=== PATIENT | male | born 1950 | race Caucasian/White ===

== ENCOUNTER → 2016-12-06 | Outpatient (CLI) | payer MEDICARE, OTHER | END | disposition home or self-care (01) | LOC: GMAM 10:35 | PROVIDERS: ATTEND Family Medicine | DX: R30.0 Dysuria (principal) ==

== ENCOUNTER → 2017-01-02 | Outpatient (CLI) | payer MEDICARE, OTHER | END | disposition home or self-care (01) | LOC: GMAM 16:43 | PROVIDERS: ATTEND Family Medicine | DX: R00.2 Palpitations (principal) ==

== ENCOUNTER → 2018-01-07 | Outpatient (CLI) | payer MEDICARE, OTHER ==
--- NOTE | 2018-01-08 01:33 | US ---
Ultrasound gallbladder on 01/07/2018 CLINICAL INDICATION: Right upper quadrant pain COMPARISON: CT from 01/11/2016 FINDINGS: Multiple sonographic images are obtained throughout the right upper quadrant, both transverse and sagittal images are obtained. Limited visualized pancreas is unremarkable. Multiple small hepatic cysts are again noted. No worrisome focal liver lesion is noted. There are no gallstones, gallbladder wall thickening or pericholecystic fluid. The common duct measures 3 mm which is within normal limits mitigating against obstruction of the biliary tree. Right kidney shows no hydronephrosis. No free fluid is noted in the right upper quadrant. IMPRESSION: Essentially unremarkable exam. Electronically signed by: Wil Ca 01/08/2018 1:32 AM PATTERN MOLDER
== END ==
LOC: US 08:00
PROVIDERS: ATTEND Family Medicine
DX: R10.11 Right upper quadrant pain (principal); D12.6 Benign neoplasm of colon, unspecified; I10 Essential (primary) hypertension; E78.2 Mixed hyperlipidemia

== ENCOUNTER 2018-01-29 05:52 | Day surgery (SDC) | payer MEDICARE, OTHER ==
[2018-01-29] MEDS ORDERED: LACTATED RINGERS 1,000 ML ONE (06:48)
[2018-01-29] MEDS ORDERED: LIDOCAINE 1% 10 ML VIAL INJ ONE (09:00)
[2018-01-29] MEDS ORDERED: PROPOFOL 200 MG/20 ML VIAL IV ONE (09:00)
--- NOTE | 2018-01-29 09:25 | OP ---
DATE OF PROCEDURE: 01/29/18 INDICATION: Previous history of tubular polyps. PREOPERATIVE DIAGNOSIS: 1. History of colonic polyps. POSTOPERATIVE DIAGNOSIS: 1. Colonoscopy completed to the cecum. Ileocecal valve visualized and photographed. 2. 4-mm polyp found in the proximal descending colon, removed with straight forceps biopsy with good hemostasis. 3. Polyp in the proximal rectum, 4-mm, removed with straight forceps biopsy with good hemostasis. 4. Polyp in the mid-rectum, approximately 6-mm in size, with a very firm texture, removed partially with straight forceps biopsy, partially with snare and the area was tattooed for future review. PROCEDURE: 1. Colonoscopy with polypectomy. SURGEON: Axel Barros MD ANESTHESIA: Per Mohsen Santiago CRNA. COMPLICATIONS: None apparent. TECHNIQUE: The patient was brought to the GI lab and laid in the left lateral decubitus position. Digital rectal exam was performed. The prostate was found to be normal in size and texture. No masses were palpated in the rectum. The colonoscope was advanced into the rectum and through to the cecum. The cecum was well visualized. The prep was good. There were no polyps noted in the cecum. The ileocecal valve was visualized, but not cannulated. The scope was then withdrawn gradually through the ascending colon, back into the transverse colon, through the transverse colon into the descending colon. In the proximal descending colon, a 4-mm polyp was noted and removed with straight forceps biopsy. Good hemostasis was achieved. The scope was withdrawn down through the sigmoid colon with no abnormalities noted and into the rectum. In the very proximal portion of the rectum, a 4-mm polyp was noted. This was removed with the straight forceps biopsy. Good hemostasis was achieved. As we withdrew further into the rectum, another larger polyp, 6 to 8-mm in size was found. This had a very hard texture to it. Straight forceps biopsy was used to biopsy a piece. The snare was used which removed a portion of it as well but due to the firmness of this polyp, we were unable to get the whole polyp with the forceps biopsy. We went back in with the straight forceps biopsy and took several more biopsies. We did feel like we adequately destroyed this polyp, but we did tattoo the area for future review in case the pathology comes back as something significant. The scope was then gradually withdrawn. Retroflexion was not attempted as significant air had already been used on this patient with the several polyps and we had a retroflexion done within the past few years. Good visualization was achieved as we withdrew. The patient tolerated the procedure well. There were no complications. The patient will be discharged when he is cleared from an anesthesia standpoint. #[id number] [facility]
[2018-01-29 09:47] VITALS: BP 115/74; TEMP 98.2; O2SAT 99
== END 2018-01-29 09:45 | disposition home or self-care, planned readmission (81) ==
LOC: AMB 05:52
PROVIDERS: ATTEND Family Medicine
DX: Z12.11 Encounter for screening for malignant neoplasm of colon (principal); D12.7 Benign neoplasm of rectosigmoid junction; D12.4 Benign neoplasm of descending colon; I10 Essential (primary) hypertension; K21.9 Gastro-esophageal reflux disease without esophagitis; M54.9 Dorsalgia, unspecified; N28.9 Disorder of kidney and ureter, unspecified; N40.0 Benign prostatic hyperplasia without lower urinary tract symptoms; E78.5 Hyperlipidemia, unspecified; I65.29 Occlusion and stenosis of unspecified carotid artery; I07.1 Rheumatic tricuspid insufficiency; I49.9 Cardiac arrhythmia, unspecified; Z86.010 Personal history of colon polyps; Z79.82 Long term (current) use of aspirin; Z79.899 Other long term (current) drug therapy
CPT/HCPCS: 00812; 45380; 45381; 45385; 88305; J3490; J7120

== ENCOUNTER → 2018-09-09 | Outpatient (CLI) | payer MEDICARE, OTHER ==
--- NOTE | 2018-09-10 09:10 | MRI ---
EXAM DESCRIPTION: Lumbar Spine w/o Contrast : Magnetic Resonance Imaging. CLINICAL HISTORY: RADICULOPATHY COMPARISON: None. TECHNIQUE: Multiplanar, multiple standard sequences, non contrast MRI, lumbar spine. FINDINGS: L5-S1: Minimal disc desiccation. Posterior midline hyperintense T2 annular fissure. Tiny bulge. Mild canal narrowing. Minimal bilateral flavum ligament hypertrophy. Mild bilateral foraminal narrowing. L4-5: Disc desiccation and moderate to severe disc space loss predominantly midline and right of midline. Modic type II endplate reactive changes to the right with disc spur complex causing mild narrowing of the right foramen. Left foramen is patent. Flavum ligament hypertrophy and minimal facet arthrosis bilaterally. Mild canal narrowing. L3-4: Minimal disc desiccation but no bulging. Trace anterolisthesis. Posterior flavum ligament hypertrophy and bilateral facet arthrosis with moderate canal narrowing. Bilateral foramina patent. L2-3: Minimal disc desiccation. Trace retrolisthesis. Minimal flavum ligament hypertrophy. Mild to moderate canal narrowing. Bilateral foramina are patent. L1-2: Minimal desiccation of the disc. Anterior disc space mild narrowing with no bulging. Trace retrolisthesis. No posterior bulge. Bilateral flavum ligament hypertrophy mild with canal patent. Bilateral foramina are patent. T12-L1: Normal signal in the disc with disc space preserved. Posterior elements unremarkable. Canal and foramina are patent. Conus terminates at this level. Otherwise normal anatomic alignment. Paravertebral soft tissues demonstrate minimal paraspinal atrophy.. Heterogeneous marrow signal in the sacrum and pelvis; remaining vertebral bodies and the posterior elements with normal marrow signal. Vertebral bodies are not compressed at any level. IMPRESSION: 1. Moderate spondylosis in the midline into the right of midline at L4-5 with disc spur complex narrowing the right foramen. Mild canal narrowing. No nerve root compromise. 2. Posterior midline annular fissure L5-S1 but no significant canal or foraminal narrowing. 3. Moderate canal narrowing at L3-4 secondary to posterior elements hypertrophy and arthrosis. 4. Varying degrees of facet hypertrophy/arthrosis and flavum ligament hypertrophy in the remaining lumbar disc spaces. Electronically signed by: Alfonzo Yi MD 09/10/2018 9:08 AM TUBE DEPATCHER
== END ==
LOC: MRI 14:10
PROVIDERS: ATTEND Physician Assistant Medical
DX: M54.16 Radiculopathy, lumbar region (principal); M51.36 Other intervertebral disc degeneration, lumbar region; M47.896 Other spondylosis, lumbar region

== ENCOUNTER → 2019-02-01 | Outpatient (CLI) | payer MEDICARE, OTHER ==
--- NOTE | 2019-02-02 09:35 | US ---
EXAM DESCRIPTION: Gall Bladder CLINICAL HISTORY: RUQ ABD PAIN COMPARISON: CT abdomen without and with contrast January 11, 2016, previous sonogram of the abdomen January 02, 2016 TECHNIQUE: Right upper quadrant ultrasound FINDINGS: Pancreas: Visualized portions of the pancreas are unremarkable. Bowel gas obscures some areas. Aorta/inferior vena cava: No aortic aneurysm. Normal inferior vena cava. Liver: The liver is homogeneous in texture with normal echogenicity of the hepatic parenchyma. Multiple small liver cysts measuring 6 mm, 1.1 cm and 1.3 cm and the right and left lobes. Sonographically solid-appearing right lobe liver lesion 1.3 cm is consistent with a hemangioma with somewhat atypical appearance. Patient had a CT of the abdomen January 11, 2016 which showed multiple liver cysts. An additional lesion in the peripheral inferior right lobe of the liver measured 1.9 cm with subtle peripheral enhancement. The appearance here is also suggestive of a hemangioma. Patient also had a sonogram of the abdomen January 02, 2016 which showed multiple liver cysts and a subtle echogenic lesion in the right lobe measurement on the previous sonogram was 2.6 cm. Continued follow-up recommended with sono of the liver and 6-12 months. No intrahepatic bile duct dilatation. No liver surface irregularity. Normal appearance of the portal vein and hepatic veins. Liver length of 17.3 cm is within normal limits. Gallbladder: Gallbladder appears normal with no intraluminal stones or wall thickening. Common bile duct: Normal caliber measuring 3.6 mm. Right kidney: Renal length is 10.2 cm. Normal cortical echogenicity. There is mild diffuse cortical thinning. No hydronephrosis is seen. No renal mass or shadowing calculus. IMPRESSION: Multiple benign appearing liver lesions. See above. Normal sonographic appearance of the gallbladder and common bile duct. Electronically signed by: Marquise Mackay MD 02/02/2019 9:32 AM CDT
== END ==
LOC: US 17:07
PROVIDERS: ATTEND Family Medicine
DX: R10.11 Right upper quadrant pain (principal); K76.89 Other specified diseases of liver

== ENCOUNTER → 2019-04-21 | Outpatient (CLI) | payer MEDICARE, OTHER | LOC: LAB.O 10:00 | PROVIDERS: ATTEND Internal Medicine Gastroenterology | DX: R63.4 Abnormal weight loss (principal); R10.10 Upper abdominal pain, unspecified ==

== ENCOUNTER 2019-05-26 05:38 | Day surgery (SDC) | payer MEDICARE, OTHER ==
[2019-05-26] MEDS ORDERED: LIDOCAINE 1% 10 ML VIAL INJ ONE (07:00)
[2019-05-26] MEDS ORDERED: PROPOFOL 200 MG/20 ML VIAL IV ONE (07:00)
[2019-05-26] MEDS ORDERED: LACTATED RINGERS 1,000 ML ONE (07:19)
[2019-05-26 13:08] VITALS: BP 139/69; TEMP 97.4; O2SAT 97
--- NOTE | 2019-05-26 13:13 | OP ---
DATE OF PROCEDURE: 05/26/19 PREOPERATIVE DIAGNOSIS: 1. Anemia. 2. Weight loss. POSTOPERATIVE DIAGNOSIS: 1. Hiatal hernia. 2. Colonic polyps. 3. Diverticulosis. 4. Internal hemorrhoids. PROCEDURE: 1. Esophagogastroduodenoscopy. 2. Colonoscopy. SURGEON: Watson Kelley MD COMPLICATIONS: No immediate complications. SEDATION: The patient was sedated via IV propofol by the Anesthesia Department. CONSENT: Prior to the procedure, risks, benefits and alternatives to the therapy were discussed with the patient. The risks included bleeding, infection, perforation and . The patient agreed to the procedure and signed a consent. PREPROCEDURE ANESTHESIA ASSESSMENT: Mallampati class type 2, ASA grade assessment type 2. Throughout the procedure, the patient's vital signs were closely monitored. EGD: The patient was placed in the left lateral decubitus position. Bite block was placed in the mouth between the teeth. The Olympus endoscope was introduced in the mouth, through the oropharynx, esophagus, stomach and the second portion of the duodenum. The scope was retracted and the mucosa visualized. The entirety of the exam was performed under direct visualization. Retroflexion was performed in the stomach. The patient tolerated the procedure well. FINDINGS: 1. The esophagus revealed a medium sized hiatal hernia. The diaphragmatic pinch was found at 44 cm from the incisors and the gastric folds at 41 cm. 2. Schatzki's ring, nonobstructive, was found at 39 cm from the incisors. 3. The remainder of the esophagus was unremarkable. 4. The stomach was unremarkable and overall normal in appearance. Biopsies were obtained with cold forceps from the gastric antrum to rule out H. pylori infection. 5. The duodenum were normal. Biopsies were obtained from the second portion and the bulb with cold forceps to rule out celiac disease. COLONOSCOPY: The patient was turned around and a rectal examination was performed. The rectal examination was within normal limits. The Olympus colonoscope was passed in the anus, rectum, traversing the colon to the level of the cecum as identified by the appendiceal orifice. The scope was retracted and the mucosa was visualized. The entirety of the exam was performed under direct visualization. Retroflexion was performed in the rectum. Preparation quality was excellent. The withdrawal time was greater than 6 minutes. The patient tolerated the procedure well. FINDINGS: 1. Diverticulosis found predominantly in the sigmoid colon. 2. Two colonic polyps, sessile, and measuring 4 to 6 mm were found in the cecum. A cold snare was utilized for removal and complete retrieval. No bleeding during or at the end of the procedure. 3. The terminal ileum was entirely normal. 4. Non-bleeding large internal hemorrhoids were found in retroflexion in the rectum. RECOMMENDATION: 1. Return the patient home. 2. Resume previous diet favoring high-fiber foods. 3. Followup pathology results. 4. Repeat colonoscopy in 5 years. 5. No evident cause to explain the patient's significant weight loss. Additional workup and clinical correlation is granted. Obtain CT abdomen and pelvis with and without IV contrast. 6. Findings were discussed with the patient and family members. 7. Return to my office in the next [address] #[id number] [facility]
== END 2019-05-26 13:05 | disposition home or self-care (01) ==
LOC: AMB 05:38
PROVIDERS: ATTEND Internal Medicine Gastroenterology
DX: D64.9 Anemia, unspecified (principal); D12.0 Benign neoplasm of cecum; K57.30 Diverticulosis of large intestine without perforation or abscess without bleeding; K64.8 Other hemorrhoids; K29.50 Unspecified chronic gastritis without bleeding; K44.9 Diaphragmatic hernia without obstruction or gangrene; K22.2 Esophageal obstruction; R63.4 Abnormal weight loss; K62.5 Hemorrhage of anus and rectum
CPT/HCPCS: 00813; 43239; 45385; 88305; 88342; J3490; J7120

== ENCOUNTER → 2019-06-09 | Outpatient (CLI) | payer MEDICARE, OTHER | LOC: LAB.O 09:06 | PROVIDERS: ATTEND Internal Medicine Gastroenterology | DX: R10.10 Upper abdominal pain, unspecified (principal); R63.4 Abnormal weight loss ==

== ENCOUNTER → 2019-06-11 | Outpatient (CLI) | payer MEDICARE, OTHER ==
--- NOTE | 2019-06-11 11:09 | CT ---
EXAM DESCRIPTION: Abdomen/Pelvis w/Contrast: Computed Tomography. CLINICAL HISTORY: 69 years Male UPPER ABDOMINAL PAIN, ABNORMAL WEIGHT LOSS. Right flank pain x5 months. COMPARISON: CT scan of abdomen and pelvis with and without contrast 01/11/2016. Ultrasound gallbladder 02/01/2019. TECHNIQUE: Spiral-axial scans at 5 x 5 mm intervals through the abdomen and pelvis, after 75 mL Optiray 320 nonionic IV contrast without oral contrast. Coronal and sagittal 2.0 mm reconstructions. Delayed scans, liver through the pelvis. Axial-spiral 5mm. No adverse reactions. Total Exam DLP: 1873.47 mGy-cm. This exam was performed according to our departmental dose-optimization program which includes automated exposure control, adjustment of the mA and/or kV according to patient size and/or use of iterative reconstruction technique; to reduce radiation dose to as low as reasonably achievable (ALARA). FINDINGS: Lung bases and pleura: Negative. Liver, Stomach, Spleen, Adrenal Glands: Multiple cystic structures less than 2 mm in diameter in the every hepatic segment. Long axis of the right hepatic lobe 17.5 cm. Small hiatal hernia. Spleen and adrenal glands negative. Pancreas, Gallbladder, Ducts: Gallbladder visualized. Ducts and pancreas negative. Kidneys and Ureters: Unremarkable. Mesentery: Negative. Aorta: Minimal atherosclerotic changes including the bilateral proximal common iliac arteries. Small Bowel: Intermittent fluid in small bowel segments with mild distention. Radiodense material within small bowel in the ileum and right lower quadrant not seen on the prior study. No surrounding inflammatory changes. Terminal Ileum/Cecum: Normal caliber of the structures in the appendix with no inflammatory changes. Colon: Fecal material proximal half of the colon. Decompression in the distal half with minimal diverticula. Minimal mucosal thickening in the descending colon but haustral markings are present. Edema in the napoles of the proximal sigmoid colon. No inflammatory changes in the surrounding fat.. Pelvic Organs: No free fluid. Prostate gland minimally enlarged, abutting the base of the urinary bladder. Bladder wall slightly thickened. 5.2 x 4.1 cm. Low density of the prosthetic segment of the urethra. Spine and Bony Pelvis: Narrowing of L4-L5 disc space with spondylosis and degenerative vacuum phenomenon. Minimal arthrosis bilateral hip joints. Possible bone mineral donor site or biopsy site left iliac wing abutting the SI joint. Stable since the prior study. Abdominal Wall/Back Soft Tissues: Negative. IMPRESSION: 1. Multiple hepatic cysts, stable since the prior study. Mild enlargement of the liver. Small hiatal hernia. No ascites. 2. Intermittent distention of the small bowel with fluid and gas. No obstruction but this could indicate a viral process. Radiodense material in the distal small bowel most likely related to food or medication. Minimal inflammatory changes in the proximal sigmoid colon with wall thickening and edema. Adjacent fat does not show inflammation. Scattered diverticula in the colon but no definite diverticulitis. 3. Enlarged prostate gland abutting the base of the urinary bladder with minimal distention of the prostatic urethra. Stable since the prior study. Electronically signed by: Alfonzo Yi MD 06/11/2019 11:07 AM CDT
== END ==
LOC: CT 08:00
PROVIDERS: ATTEND Internal Medicine Gastroenterology
DX: K76.89 Other specified diseases of liver (principal); K57.30 Diverticulosis of large intestine without perforation or abscess without bleeding; K44.9 Diaphragmatic hernia without obstruction or gangrene; N40.0 Benign prostatic hyperplasia without lower urinary tract symptoms

== ENCOUNTER → 2019-11-29 | Outpatient (CLI) | payer MEDICARE, OTHER ==
--- NOTE | 2019-11-30 09:02 | MRI ---
EXAM DESCRIPTION: Lumbar Spine w/o Contrast : Magnetic Resonance Imaging. CLINICAL HISTORY: SPINAL STENOSIS COMPARISON: MRI lumbar spine without contrast September 2018. Lumbar spine radiographs November 2019. TECHNIQUE: Multiplanar, multiple standard sequences, non contrast MRI, lumbar spine. FINDINGS: L5-S1: The disc is well visualized on axial T2 series 501, image 3. Disc desiccation and minimal disc space loss. Posterior midline bulge with hyperintense T2 annular fissure. Degenerative hypertrophy of the posterior flavum ligaments and facet joints (posterior elements) mild to moderate bilateral foraminal narrowing. AP canal diameter 12 mm. Stable since the prior study. L4-L5: Disc desiccation and moderate to severe disc space loss to the right of midline with moderate endplate reactive changes. Disc spur complexes encroaching on the right foramen which is mildly moderately narrowed. No edema within the disc. Minimal posterior disc osteophyte bulge. Degenerative hypertrophy of the posterior elements impressing on the lateral thecal sac. AP canal diameter 13 mm. No change from the prior study. L3-L4: disc desiccation minimal disc space loss. Grade 1 anterolisthesis 2 mm. Moderate degenerative hypertrophy posterior elements. AP canal diameter 9 mm. Mild narrowing left foramen and right foramen is patent. L2-L3: Disc desiccation with disc space preserved and no posterior bulging. Minimal degenerative hypertrophy of the posterior elements. AP canal diameter 14 mm. Bilateral foramina are patent. L1-L2: Disc desiccation with anterior bulging and minimally anterior endplate ridging and disc space loss. No posterior bulge. Minimal degenerative hypertrophy of the posterior elements. Canal and bilateral foramina are patent. No change from the prior study. T12-L1: Normal signal in the disc with disc space preserved. No posterior bulging. Minimal hypertrophy of the posterior elements. Canal and bilateral foramina are patent. Stable since the prior study. No significant scoliosis. Paravertebral soft tissues unremarkable.. Distal cord normal signal and caliber. Heterogeneous marrow signal in the remaining vertebral bodies and the posterior elements. Vertebral bodies are not compressed at any level.. Perineural cyst on the right at S2 is a normal variant. IMPRESSION: 1. Multiple levels of dislocated discs and hypertrophic posterior flavum ligaments and degenerated facet joints. 2. Moderate spondylosis at L4-L5 more severe on the right. No nerve impingement. No canal or foraminal stenosis. No change from the prior study. 3. Grade 1 anterolisthesis L3-L4 with multifactorial mild central canal stenosis. Foramina are patent. Stable from the prior study. These findings were discussed by phone call directly from Dr. Yi to Dr. Barros at approximately 900 hours on November 30, 2019. Electronically signed by: Alfonzo Yi MD 11/30/2019 9:01 AM [facility]
== END ==
LOC: MRI 09:49
PROVIDERS: ATTEND Family Medicine
DX: M48.062 Spinal stenosis, lumbar region with neurogenic claudication (principal); M51.36 Other intervertebral disc degeneration, lumbar region; M51.37 Other intervertebral disc degeneration, lumbosacral region; M47.896 Other spondylosis, lumbar region; M43.16 Spondylolisthesis, lumbar region; M24.28 Disorder of ligament, vertebrae

== ENCOUNTER → 2020-03-30 | Outpatient (CLI) | payer MEDICARE, OTHER ==
--- NOTE | 2020-03-31 09:36 | RAD ---
EXAM DESCRIPTION: Lumbar Spine 3 Views: CR/DR/x-ray. CLINICAL HISTORY: 69 years Male SPINAL STENOSIS M48.062 COMPARISON: MRI scan lumbar spine November 29. Radiographs lumbar spine November 24. TECHNIQUE: 2 Views lumbar spine. AP Lateral lumbosacral lateral spot L5-S1. FINDINGS: Lumbar type vertebra: 5. Technically difficult study due to patient large body habitus and bowel gas. Transitional vertebrae: None. Posterior spinous processes with external fixation and fusion L3-L4 and L4-L5. Disc spaces: Minimal narrowing L5-S1. Facet joints: Bilateral arthrosis L4-L5 and L5-S1. Compression deformities: None. Bone Density: Normal. Alignment: Dextroscoliosis. Grade 1 anterolisthesis L3-L4. Abdomen: Fecal matter proximal colon. IMPRESSION: Posterior spinous process fusion L3-L4 and L4-L5. Minimal narrowing of the L5-S1 disc space. Mild levoscoliosis. Arthrosis L4-L5 and L5-S1. No significant spondylolisthesis. No compression type vertebral body fractures. Electronically signed by: Alfonzo Yi MD 03/31/2020 9:34 AM CDT
== END ==
LOC: RAD 16:32
PROVIDERS: ATTEND Family Medicine Sports Medicine
DX: M48.062 Spinal stenosis, lumbar region with neurogenic claudication (principal); M41.86 Other forms of scoliosis, lumbar region; M47.896 Other spondylosis, lumbar region; M47.897 Other spondylosis, lumbosacral region; M51.37 Other intervertebral disc degeneration, lumbosacral region; Z98.1 Arthrodesis status

== ENCOUNTER → 2020-04-05 | Outpatient (CLI) | payer MEDICARE, OTHER ==
--- NOTE | 2020-04-05 13:10 | MRI ---
Study: MRI of the Right Hip. Indication: STENOSIS Technique: Multiplanar, multi sequence MRI of the right hip was obtained without intravenous contrast. Comparison: None. Findings: Patchy diminished T1 marrow signal throughout the lumbar spine and pelvis with mild elevated STIR signal, likely red marrow reconversion but ultimately nonspecific. Pronounced lower lumbar disc disease. No acute fracture or osteonecrosis. Tendinosis bilateral hamstring tendon origins. Tendinosis bilateral gluteus minimus/medius tendon insertions with mild bilateral greater trochanteric bursal edema. Grade 3 chondral thinning throughout the majority of the right hip joint with subtle areas of grade 4 chondrosis anterior superiorly and posteriorly. Tiny osteophytes present. Tiny joint effusion. Degenerative tearing anterior superior right hip labrum. Impression: Moderate right hip osteoarthritis without acute fracture or osteonecrosis. Patchy diminished T1 marrow signal with slightly elevated STIR signal, likely red marrow reconversion but nonspecific. Correlation with CBC recommended. Bone marrow biopsy may prove useful. Additional findings as above. Electronically signed by: Sg Hutchins MD 04/05/2020 1:09 PM CDT
== END ==
LOC: MRI 08:00
PROVIDERS: ATTEND Family Medicine Sports Medicine
DX: M16.11 Unilateral primary osteoarthritis, right hip (principal); M48.062 Spinal stenosis, lumbar region with neurogenic claudication; M51.84 Other intervertebral disc disorders, thoracic region

== ENCOUNTER → 2020-07-26 | Outpatient (CLI) | payer MEDICARE, OTHER | LOC: GMAM 14:06 | PROVIDERS: ATTEND Family Medicine | DX: E53.8 Deficiency of other specified B group vitamins (principal); E55.9 Vitamin D deficiency, unspecified; Z12.5 Encounter for screening for malignant neoplasm of prostate; I10 Essential (primary) hypertension; E78.2 Mixed hyperlipidemia | CPT/HCPCS: 82306; 82607; G0103 ==

== ENCOUNTER 2020-07-28 05:40 | Day surgery (SDC) | payer MEDICARE, OTHER ==
[2020-07-28] MEDS ORDERED: LIDOCAINE 1% 10 ML VIAL INJ ONE ×4 (07:00→13:43)
[2020-07-28] MEDS ORDERED: PROPOFOL 200 MG/20 ML VIAL IV ONE (07:00)
[2020-07-28] MEDS ORDERED: methylPREDNISolone ACETATE 80 MG/ML VIAL ONE (08:36)
[2020-07-28] MEDS ORDERED: BUPIVACAINE 0.5% 30 ML VIAL INJ ONE ×2 (08:36→13:44)
[2020-07-28] MEDS ORDERED: SODIUM CHLORIDE 0.9% 1000ML 1,000 ML ONE (12:42)
[2020-07-28] MEDS ORDERED: methylPREDNISolone ACETATE 80 MG/ML VIAL IM ONE (13:44)
--- NOTE | 2020-07-31 09:05 | RAD ---
EXAM DESCRIPTION: Fluoroscopy Up to 1Hr CLINICAL HISTORY: RIGHT SI INJECTION COMPARISON: None. IMPRESSION: Spot fluoroscopic intraoperative views of the pelvis are obtained for pain injection procedure. Please see dictated operative report. Approximately 6 seconds of intraoperative fluoroscopy time was utilized. No extra exposure images are obtained. Electronically signed by: Enmanuel Clark MD 07/31/2020 9:03 AM CDT
== END 2020-07-28 14:55 | disposition home or self-care (01) ==
LOC: AMB 05:40
PROVIDERS: ATTEND Family Medicine Sports Medicine
DX: M46.1 Sacroiliitis, not elsewhere classified (principal); Z79.899 Other long term (current) drug therapy
CPT/HCPCS: 76000; G0260; J1030; J3490; J7030

== ENCOUNTER → 2020-08-04 | Outpatient (CLI) | payer MEDICARE, OTHER | LOC: GMAM 10:43 | PROVIDERS: ATTEND Family Medicine | DX: E29.1 Testicular hypofunction (principal) ==

== ENCOUNTER → 2020-12-04 | Outpatient (CLI) | payer MEDICARE, OTHER ==
--- NOTE | 2020-12-04 15:26 | MRI ---
EXAM DESCRIPTION: Lumbar Spine w/o Contrast CLINICAL HISTORY: 70 years Male, low back pain COMPARISON: 11/29/2019. TECHNIQUE: Multisequence, multiplanar images of the lumbar spine without intravenous contrast. FINDINGS: For the purpose of this report, the designated L5-S1 disc space will be referred to as axial T2 image 3, series 501. Vertebrae: Mild susceptibility artifacting interspinous hardware at L3-4 and L4-5. These limitations, no acute fracture. Moderate lordosis centered at L4. Modic type degenerative changes at L4-5. Mild levocurvature centered at L4. Trace retrolisthesis of L2 relative to L3 likely contributed by facet hypertrophy. Spinal cord: Termination of the conus medullaris at T12-L1. Normal nerve roots of the cauda equina. Discs, facets, spinal canal, and neural foramina: Disc desiccation throughout the lumbar spine. Moderate narrowing along the right aspect of the L4-5 disc space. L1-L2: No disc bulge. Severe facet arthropathy. No stenosis. L2-3: No disc bulge. Severe facet arthropathy. No stenosis. L3-4: Severe facet arthropathy. Moderate spinal canal stenosis. Mild left greater than right neural foraminal stenosis. L4-5: Minimal disc bulge. Spinal canal patent. Mild right greater left neural foraminal stenosis. L5-S1: No disc bulge. Moderate right greater than left facet arthropathy. Spinal canal patent. Neuroforamina patent. Paraspinous soft tissues: Unremarkable prevertebral soft tissues. Cortical left renal cyst. IMPRESSION: 1. No acute fracture. 2. Lumbar spondylosis as above. Electronically signed by: William George MD 12/04/2020 3:24 PM [facility]
== END ==
LOC: MRI 09:48
PROVIDERS: ATTEND Family Medicine Sports Medicine
DX: M47.896 Other spondylosis, lumbar region (principal)